=== PATIENT | male | born 2000 | race Caucasian/White ===

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

== ENCOUNTER 2022-02-20 21:12 | Emergency (ER) | payer BC ==
[~2022-02-20] VITALS: Ht 198.1 cm; Wt 118.0 kg
[~2022-02-20 21:12] MED LIST: ATEN50TA PO
[2022-02-20 21:15] VITALS: BP 137/92
--- NOTE | 2022-02-20 21:32 | ED General ---
General Chief Complaint: Head/Cervical Problems Stated Complaint: NUMBNESS, HEADACHE Nursing Triage Note: Pt states that around 5-6 hours ago he started having some vision changes. Around 1800 he started to notice numbness and tingling of his left upper extremity and tongue. Has had a hx of "corneal fluid detachment". Pt has Marfan syndrome and has a series of surgeries on his eyes. He states that his symptoms have almost resolved and is still having some slight numbness and tingling in his finger tips and feels like he is having some left sided weakness when walking. Mostly concerned right now about his "right rear head pain" that he rates 2-3/10. History of Present Illness Date Seen by Provider: Feb 20, 2022 Time Seen by Provider: 21:24 Initial Comments 21-year-old male with PMH of Marfan syndrome/ enlarged aortic root/ mitral valve prolapse/ eye condition ( pt does not remember what its called), is brought in by EMS with c/o left arm tingling and visual discomfort which began around 3 PM or 4 PM. Visual disturbances occurred first and then the tingling occurred after. Patient is able to walk without difficulty. Patient also complains of a migraine headache. Patient has had all his meals today and has been drinking enough fluids. Denies fever, neck pain or stiffness, chest pain, palpitations, abdominal pain, diarrhea. No known sick contacts Allergies and Home Medications Allergies Coded Allergies: No Known Drug Allergies (Unverified , 07/19/17) Patient Home Medication List Home Medication List Reviewed: Yes Atenolol (Atenolol) 50 Mg Tablet, 50 MG PO BID, (Reported) Entered as Reported by: LALI JAIMES on 07/19/17 1142 Review of Systems Review of Systems Constitutional: no symptoms reported EENTM: no symptoms reported Respiratory: no symptoms reported Cardiovascular: no symptoms reported Gastrointestinal: no symptoms reported Genitourinary: no symptoms reported Musculoskeletal: no symptoms reported Skin: no symptoms reported Psychiatric/Neurological: Headache, Tingling Hematologic/Lymphatic: No Symptoms Reported Immunological/Allergic: no symptoms reported Past Zmoyjhj-Vqzwbl-Wzfexh Hx Patient Social History Tobacco Use?: No Use of E-Cig and/or Vaping dev: No Substance use?: No Alcohol Use?: No Pt feels they are or have been: No Immunizations Up To Date Influenza Vaccine Up-to-Date: Yes; Up-to-Date Seasonal Allergies Seasonal Allergies: No Physical Exam Vital Signs Vital Signs - First Documented 02/20/22 21:15 Temp 36.4 Pulse 80 Resp 12 B/P (MAP) 137/92 (107) Pulse Ox 98 O2 Delivery Room Air Capillary Refill : Less Than 3 Seconds Height, Weight, BMI Height: 6'6.00" Weight: 220lbs. 0.0oz. 99.164515nh; 30.00 BMI Method: General Appearance: No Apparent Distress, WD/WN Eyes: Bilateral Eye Normal Inspection, Bilateral Eye PERRL, Bilateral Eye EOMI HEENT: PERRL/EOMI Neck: Full Range of Motion, Normal Inspection, Non Tender, Supple Respiratory: Chest Non Tender, Lungs Clear, Normal Breath Sounds Cardiovascular: Regular Rate, Rhythm, No Edema, Systolic Murmur Gastrointestinal: Normal Bowel Sounds, No Organomegaly, Non Tender, Soft Back: Normal Inspection, No Vertebral Tenderness Neurologic/Psychiatric: Alert, Oriented x3, No Motor/Sensory Deficits, Normal Mood/Affect, redye hand II-XII Norm as Tested Skin: Normal Color Lymphatic: No Adenopathy Progress/Results/Core Measures Suspected Sepsis SIRS Temperature: Pulse: 80 Respiratory Rate: 12 Laboratory Tests 02/20/22 21:20: White Blood Count 9.9 Blood Pressure 137 /92 Mean: 107 Laboratory Tests 02/20/22 21:20: Creatinine 0.95, Platelet Count 237, Total Bilirubin 0.4 Results/Orders Lab Results Laboratory Tests Test 02/20/22 21:20 02/20/22 22:09 Range/Units White Blood Count 9.9 4.3-11.0 10^3/uL Red Blood Count 5.31 4.30-5.52 10^6/uL Hemoglobin 15.7 13.3-17.7 g/dL Hematocrit 45 40-54 % Mean Corpuscular Volume 85 80-99 fL Mean Corpuscular Hemoglobin 30 25-34 pg Mean Corpuscular Hemoglobin Concent 35 32-36 g/dL Red Cell Distribution Width 13.2 10.0-14.5 % Platelet Count 237 130-400 10^3/uL Mean Platelet Volume 9.7 9.0-12.2 fL Immature Granulocyte % (Auto) 0 % Neutrophils (%) (Auto) 53 42-75 % Lymphocytes (%) (Auto) 33 12-44 % Monocytes (%) (Auto) 9 0-12 % Eosinophils (%) (Auto) 4 0-10 % Basophils (%) (Auto) 1 0-10 % Neutrophils # (Auto) 5.3 1.8-7.8 10^3/uL Lymphocytes # (Auto) 3.3 1.0-4.0 10^3/uL Monocytes # (Auto) 0.9 0.0-1.0 10^3/uL Eosinophils # (Auto) 0.4 H 0.0-0.3 10^3/uL Basophils # (Auto) 0.1 0.0-0.1 10^3/uL Immature Granulocyte # (Auto) 0.0 0.0-0.1 10^3/uL Sodium Level 143 135-145 MMOL/L Potassium Level 3.7 3.6-5.0 MMOL/L Chloride Level 105 98-107 MMOL/L Carbon Dioxide Level 23 21-32 MMOL/L Anion Gap 15 H 5-14 MMOL/L Blood Urea Nitrogen 13 7-18 MG/DL Creatinine 0.95 0.60-1.30 MG/DL Estimat Glomerular Filtration Rate 116 BUN/Creatinine Ratio 14 Glucose Level 91 70-105 MG/DL Calcium Level 9.4 8.5-10.1 MG/DL Corrected Calcium 8.5-10.1 MG/DL Magnesium Level 2.1 1.6-2.4 MG/DL Total Bilirubin 0.4 0.1-1.0 MG/DL Aspartate Amino Transf (AST/SGOT) 23 5-34 U/L Alanine Aminotransferase (ALT/SGPT) 43 0-55 U/L Alkaline Phosphatase 110 40-136 U/L Troponin I < 0.30 <0.30 NG/ML Total Protein 7.9 6.4-8.2 GM/DL Albumin 4.6 H 3.2-4.5 GM/DL Urine Color YELLOW Urine Clarity CLEAR Urine pH 5.5 5-9 Urine Specific [place] >=1.030 1.016-1.022 Urine Protein NEGATIVE NEGATIVE Urine Glucose (UA) NEGATIVE NEGATIVE Urine Ketones NEGATIVE NEGATIVE Urine Nitrite NEGATIVE NEGATIVE Urine Bilirubin NEGATIVE NEGATIVE Urine Urobilinogen 0.2 < = 1.0 MG/DL Urine Leukocyte Esterase NEGATIVE NEGATIVE Urine RBC (Auto) NEGATIVE NEGATIVE Urine RBC 5-10 H /HPF Urine WBC NONE /HPF Urine Squamous Epithelial Cells 2-5 /HPF Urine Crystals NONE /LPF Urine Bacteria FEW H /HPF Urine Casts NONE /LPF Urine Mucus LARGE H /LPF Urine Culture Indicated NO Urine Opiates Screen NEGATIVE NEGATIVE Urine Oxycodone Screen NEGATIVE NEGATIVE Urine Methadone Screen NEGATIVE NEGATIVE Urine Propoxyphene Screen NEGATIVE NEGATIVE Urine Barbiturates Screen NEGATIVE NEGATIVE Ur Tricyclic Antidepressants Screen NEGATIVE NEGATIVE Urine Phencyclidine Screen NEGATIVE NEGATIVE Urine Amphetamines Screen NEGATIVE NEGATIVE Urine Methamphetamines Screen NEGATIVE NEGATIVE Urine Benzodiazepines Screen NEGATIVE NEGATIVE Urine Cocaine Screen NEGATIVE NEGATIVE Urine Cannabinoids Screen NEGATIVE NEGATIVE My Orders Orders - SASCHA PIKE MD Ct Head Wo-R/O Stroke (02/20/22 21:28) Chest 1 View Ap/Pa Only (02/20/22 21:28) Cbc With Automated Diff (02/20/22 21:30) Comprehensive Metabolic Panel (02/20/22 21:30) Drug Screen Stat (Urine) (02/20/22 21:30) Magnesium (02/20/22 21:30) Ua Culture If Indicated (02/20/22 21:30) Troponin I Fs (02/20/22 21:30) Ct Angio Head/Neck (02/20/22 22:45) Iohexol Injection (Omnipaque 350 Mg/Ml 1 (02/20/22 23:00) Received Contrast (Hold Metformin- Contr (02/20/22 23:00) Sodium Chloride Flush (Catheter Flush Sy (02/20/22 23:00) Ns (Ivpb) (Sodium Chloride 0.9% Ivpb Bag (02/20/22 23:00) Medications Given in ED Current Medications Medications Dose Ordered Sig/Tony Route Start Time Stop Time Status Last Admin Dose Admin Iohexol 100 ml ONCE ONCE IV 02/20/22 23:00 02/20/22 23:01 DC 02/20/22 23:20 100 ML Sodium Chloride 10 ml NEEDED PRN IV 02/20/22 23:00 02/20/22 23:20 10 ML Sodium Chloride 100 ml ONCE ONCE IV 02/20/22 23:00 02/20/22 23:01 DC 02/20/22 23:20 80 ML Vital Signs/I&O 02/20/22 02/20/22 02/20/22 02/20/22 21:15 22:00 23:37 23:45 Temp 36.4 Pulse 80 63 85 97 Resp 12 16 18 19 B/P (MAP) 137/92 (107) 122/82 122/66 125/65 Pulse Ox 98 96 96 97 O2 Delivery Room Air Room Air Room Air Room Air 02/21/22 02/21/22 02/21/22 00:00 00:30 01:00 Pulse 96 85 91 Resp 16 22 20 B/P (MAP) 120/70 123/64 116/69 Pulse Ox 96 97 98 O2 Delivery Room Air Room Air Room Air Capillary Refill : Less Than 3 Seconds Blood Pressure Mean: 107 Progress Note : Progress Note 1. LEFT ARM TINGLING/ VISUAL DISCOMFORT, RESOLVED: - CT HEAD & C-SPINE: no acute findings - CTA HEAD & NECK: negative - CXR: unremarkable - CBC/ CMP/ UA/ UDS: unremarkable - Pt was in ER a long time. Delay in CTA results - Follow up with PCP and neurologist and eye doctor. -The patient was seen in the ED, and treated appropriately to presentation at a specific point in time. Patient is informed that there is a possibility that disease and illness can evolve and change in acuity rapidly or slowly after patient is discharged from the ER. Precautionary advice given to the patient for immediate return to ER if symptoms worsen or do not resolve, and to seek emergency care sooner rather than later. Pt also advised on the importance of PCP follow up and compliance with management and follow up plan with PCP and/or specialist, as this is part of the management plan. Pt verbally expressed understanding. Diagnostic Imaging Diagonstic Imaging: Xray, CT Plain Films/CT/US/NM/MRI: head Comments [facility], [place] NAME: [facility] REC#: [id number] PT STATUS: REG ER : 2000 PHYSICIAN: SASCHA PIKE MD ADMIT DATE: 02/20/22/ER FS Draft Date of Exam:02/20/22 CHEST 1 VIEW AP/PA ONLY INDICATION: Tingling left arm. COMPARISON: None. FINDINGS: Single frontal view of the chest demonstrates normal heart size and pulmonary vascularity. The lungs are well aerated and clear. No large pleural effusion or pneumothorax is seen. The visualized osseous structures show no acute abnormalities. IMPRESSION: No acute cardiopulmonary process. Dictated on workstation # [id number] Dict: 02/20/22 221 Trans: 02/20/222212 PJE [id number] Interpreted by: WANG WILLSON MD Electronically signed by: [facility], [facility]. [place], [place] NAME: JOSHUA CARROLL III REC#: [id number] PT STATUS: REG ER : 2000 PHYSICIAN: SASCHA PIKE MD ADMIT DATE: 02/20/22/ER FS Draft Date of Exam:02/20/22 CT HEAD WO-R/O STROKE INDICATION: Left upper extremity paresthesia. TECHNIQUE: Routine non contrast-enhanced axial images were obtained from the skull base to the vertex. Auto Exposure Controls were utilized during the CT exam to meet ALARA standards for radiation dose reduction COMPARISON: None. FINDINGS: The ventricles and cortical sulci are normal in size and contour. There is no midline shift or mass-effect. No acute intra-axial hemorrhage is seen. There are no abnormal areas of increased or decreased density to suggest acute hemorrhage or edema. No extra-axial masses or collections are present. The bony calvarium is intact. The visualized paranasal sinuses are unremarkable. The mastoid air cells are clear. IMPRESSION: No acute intracranial abnormality. No CT evidence of mass, acute infarct or intracranial hemorrhage. Results called to Dedrick in the [facility] at 9:59 p.m., by reji. Dictated on workstation # [id number] Dict: 02/20/222150 Trans: 02/20/222200 PJE [id number] Interpreted by: WANG WILLSON MD Electronically signed by: Departure Impression Primary Impression: Left face and left arm tingling Additional Impression: Neuropathy Disposition: 01 HOME, SELF-CARE Condition: Improved Departure-Patient Inst. Referrals: NO,LOCAL PHYSICIAN (PCP/Family) Primary Care Physician Patient Instructions: Peripheral Neuropathy Add. Discharge Instructions: Follow up with PCP and Psychiatry and Ophthalmology - Return to ER if worsening All discharge instructions reviewed with patient and/or family. Voiced understanding. SASCHA PIKE MD Feb 20, 2022 21:32
[2022-02-20 21:34] LABS: BASOPHILS # (AUTO) 0.1 10^3/uL (0.0-0.1); BASOPHILS % (AUTO) 1 % (0-10); EOSINOPHILS # (AUTO) 0.4 10^3/uL (0.0-0.3); EOSINOPHILS % (AUTO) 4 % (0-10); HEMATOCRIT 45 % (40-54); HEMOGLOBIN 15.7 g/dL (13.3-17.7); LYMPHOCYTES # (AUTO) 3.3 10^3/uL (1.0-4.0); LYMPHOCYTES % (AUTO) 33 % (12-44); MEAN CORPUSCULAR HEMOGLOBIN 30 pg (25-34); MEAN CORPUSCULAR HGB CONC 35 g/dL (32-36); MEAN CORPUSCULAR VOLUME 85 fL (80-99); MEAN PLATELET VOLUME 9.7 fL (9.0-12.2); MONOCYTES # (AUTO) 0.9 10^3/uL (0.0-1.0); MONOCYTES % (AUTO) 9 % (0-12); NEUTROPHILS # (AUTO) 5.3 10^3/uL (1.8-7.8); NEUTROPHILS % (AUTO) 53 % (42-75); PLATELET COUNT 237 10^3/uL (130-400); WHITE BLOOD COUNT 9.9 10^3/uL (4.3-11.0)
[2022-02-20 21:54] LABS: ALANINE AMINOTRANSFERASE 43 U/L (0-55); ALBUMIN 4.6 GM/DL (3.2-4.5); ALKALINE PHOSPHATASE 110 U/L (40-136); BILIRUBIN,TOTAL 0.4 MG/DL (0.1-1.0); BUN/CREATININE RATIO 14; CALCIUM 9.4 MG/DL (8.5-10.1); CARBON DIOXIDE 23 MMOL/L (21-32); CHLORIDE 105 MMOL/L (98-107); CREATININE SERUM 0.95 MG/DL (0.60-1.30); GFR ESTIMATED 116; GLUCOSE 91 MG/DL (70-105); MAGNESIUM 2.1 MG/DL (1.6-2.4); POTASSIUM 3.7 MMOL/L (3.6-5.0); SODIUM 143 MMOL/L (135-145); TOTAL PROTEIN 7.9 GM/DL (6.4-8.2)
--- NOTE | 2022-02-20 22:02 | Diagnostic Imaging Report ---
INDICATION: Left upper extremity paresthesia. TECHNIQUE: Routine non contrast-enhanced axial images were obtained from the skull base to the vertex. Auto Exposure Controls were utilized during the CT exam to meet ALARA standards for radiation dose reduction COMPARISON: None. FINDINGS: The ventricles and cortical sulci are normal in size and contour. There is no midline shift or mass-effect. No acute intra-axial hemorrhage is seen. There are no abnormal areas of increased or decreased density to suggest acute hemorrhage or edema. No extra-axial masses or collections are present. The bony calvarium is intact. The visualized paranasal sinuses are unremarkable. The mastoid air cells are clear. IMPRESSION: No acute intracranial abnormality. No CT evidence of mass, acute infarct or intracranial hemorrhage. Results called to Dedrick in the [facility] at 9:59 p.m., by reji. Dictated by: Dictated on workstation # [id number]
--- NOTE | 2022-02-20 22:13 | Diagnostic Imaging Report ---
INDICATION: Tingling left arm. COMPARISON: None. FINDINGS: Single frontal view of the chest demonstrates normal heart size and pulmonary vascularity. The lungs are well aerated and clear. No large pleural effusion or pneumothorax is seen. The visualized osseous structures show no acute abnormalities. IMPRESSION: No acute cardiopulmonary process. Dictated by: Dictated on workstation # [id number]
[2022-02-20 22:15] LABS: BILIRUBIN,URINE NEGATIVE (NEGATIVE); CLARITY,URINE CLEAR; COLOR,URINE YELLOW; GLUCOSE, URINE (UA) NEGATIVE (NEGATIVE); KETONES,URINE NEGATIVE (NEGATIVE); LEUKOCYTE ESTERASE ,URINE NEGATIVE (NEGATIVE); NITRITE,URINE NEGATIVE (NEGATIVE); PH,URINE 5.5 (5-9); PROTEIN,URINE NEGATIVE (NEGATIVE)
[2022-02-20 22:18] LABS: BACTERIA,URINE FEW /HPF
[2022-02-20 22:26] LABS: AMPHETAMINE SCREEN, URINE NEGATIVE (NEGATIVE); BARBITURATE SCREEN URINE NEGATIVE (NEGATIVE); BENZODIAZEPINES SCREEN URINE NEGATIVE (NEGATIVE); CANNABINOID SCREEN, URINE NEGATIVE (NEGATIVE); COCAINE SCREEN URINE NEGATIVE (NEGATIVE); METHADONE STAT NEGATIVE (NEGATIVE); OPIATE SCREEN URINE NEGATIVE (NEGATIVE); OXYCODONE STAT NEGATIVE (NEGATIVE); PROPOXYPHENE STAT NEGATIVE (NEGATIVE); TRICYCLIC ANTIDEPRESSANTS SCRE NEGATIVE (NEGATIVE)
[2022-02-20] MEDS ORDERED: IOHEXOL 350 MG/ML 100 ML (OMNIPAQUE 350) VIAL IV ONE (23:00)
[2022-02-20] MEDS ORDERED: HOLD METFORMIN - RECEIVED CONTRAST 20 ML VIAL IV SCH (23:00)
[2022-02-20] MEDS ORDERED: NS 100 ML (IVPB) BAG IV ONE (23:00)
[2022-02-20] MEDS ORDERED: CATHETER FLUSH 10 ML SYR IV PRN (23:00)
--- NOTE | 2022-02-21 07:11 | Diagnostic Imaging Report ---
EXAMINATION: CT angiography head and neck with and without contrast. TECHNIQUE: After intravenous administration of contrast, thin section axial CT angiography of the head and neck was performed. Source data was reformatted into 3D MIP projections. All CT scans use one or more of the following dose optimizing techniques: automated exposure control, MA and/or KvP adjustment based on a patient size and exam type, or iterative reconstruction. HISTORY: left arm tingling, visual disturbances COMPARISON: None available. FINDINGS: The middle cerebral arteries are normal. The posterior cerebral arteries are normal. The anterior cerebral arteries are normal. There is no large vessel occlusion. No aneurysm or vascular malformation seen. The origins of the carotid arteries are normal. There are normal carotid bifurcations bilaterally. the internal carotid arteries appear normal without stenosis aneurysmal dilatation or dissection. Vertebral artery origins are normal. There is no significant stenosis or evidence for occlusion. No vertebral artery dissections. [place]ver[place]-white matter differentiation is normal. There is no mass mass effect or midline shift. There is no hydrocephalus. No soft tissue abnormality is seen. No osseus lesions or fractures are seen. Limited views of the superior thorax are unremarkable. IMPRESSION: 1. Normal vasculature in the head and neck without large vessel occlusion. Findings agree with the preliminary report. Dictated by: Dictated on workstation # [id number]
== END 2022-02-21 02:03 | disposition home or self-care (01) ==
LOC: EDUNIT# 21:12 → ER FS 21:14
DX: G62.9 Polyneuropathy, unspecified (principal)
CPT/HCPCS: 36415; 70450; 70496; 70498; 71045; 80053; 80306; 81000; 83735; 84484; 85025

== ENCOUNTER → 2023-05-05 | Outpatient (CLI) | payer BC ==
[~2023-05-05] MED LIST changes: +CATHETER FLUSH 10 ML SYR IV PRN; +HOLD METFORMIN - RECEIVED CONTRAST 20 ML VIAL IV SCH; +IOHEXOL 350 MG/ML 100 ML (OMNIPAQUE 350) VIAL IV ONE; +NS 100 ML (IVPB) BAG IV ONE
--- NOTE | 2023-05-05 20:52 | Diagnostic Imaging Report ---
INDICATION: History of Marfan syndrome and aortic dilatation. TECHNIQUE: CTA of the chest and abdomen was obtained with IV contrast bolus and axial slices and maximal intensity projection reconstructions. Dose reduction protocol was used. FINDINGS: CTA CHEST: The pulmonary parenchymal vessels are well-opacified with no CT evidence of pulmonary emboli. There are no enlarged mediastinal or hilar nodes. There are no enlarged axillary nodes or chest wall lesions. The thoracic aorta shows no evidence of dissection or aneurysm. The great vessel origins are patent and without stenosis. The maximal ascending aortic diameter is 3.5 cm. The aortic arch and descending aorta appear normal as well. There is no pleural or pericardial fluid. Lung windows show no focal infiltrates. There are no pulmonary nodules. CTA ABDOMEN AND PELVIS: The liver shows mild fatty change without focal lesion. The spleen is not enlarged and shows no focal lesion. The pancreas and adrenals are normal. The kidneys bilaterally are unremarkable. There is no retroperitoneal mass or adenopathy. There is no ascites or abnormal fluid collection. The visualized bowel loops appear unremarkable. The abdominal aorta shows no evidence of aneurysm or dissection. The celiac trunk, SMA, and renal arteries are patent and without stenosis. There is a small accessory renal artery on the right side. The inferior mesenteric artery is patent. IMPRESSION: Essentially negative CTA of the chest, abdomen, and pelvis. No aortic aneurysm, dissection, or acute abnormality. Dictated by: Dictated on workstation # [id number]
== END ==
LOC: RAD FS 16:43
DX: Z13.6 Encounter for screening for cardiovascular disorders (principal); I51.7 Cardiomegaly; Q87.410 Marfan syndrome with aortic dilation
CPT/HCPCS: 71275; 74175; Q9967